=== PATIENT | male | born 1930 ===

== ENCOUNTER 2019-10-07 07:27 | Day surgery (SDC) | payer OTHER ==
[2019-10-07] MEDS ORDERED: SODIUM CHLORIDE 0.9% 1,000 ML IV SCH (08:00)
[2019-10-07] MEDS ORDERED: PLEASE ENTER HEIGHT AND WEIGHT MC SCH (08:30)
[2019-10-07] MEDS ORDERED: PLEASE ENTER ALLERGIES MC SCH (08:30)
[2019-10-07] MEDS ORDERED: FENTANYL PF 100 MCG/2ML ONE ×2 (09:14)
[2019-10-07] MEDS ORDERED: MIDAZOLAM 1 MG/ML, 5ML ONE (09:15)
[2019-10-07] MEDS ORDERED: NALOXONE 1 MG/ML, 2ML ONE (09:15)
[2019-10-07] MEDS ORDERED: FLUMAZENIL 0.1 MG/1 ML, 5ML ONE (09:15)
== END 2019-10-07 13:30 | disposition home or self-care (01) ==
LOC: OUT 07:27
PROVIDERS: ATTEND Internal Medicine Nephrology
DX: R91.8 Other nonspecific abnormal finding of lung field (principal); C34.11 Malignant neoplasm of upper lobe, right bronchus or lung; E11.9 Type 2 diabetes mellitus without complications; I10 Essential (primary) hypertension; Z79.899 Other long term (current) drug therapy; Z98.890 Other specified postprocedural states; Z85.048 Personal history of other malignant neoplasm of rectum, rectosigmoid junction, and anus
CPT/HCPCS: 32405; 71045; 77012; 82962; 88305; 88333; 99156; 99157; J2250; J3010; J2310